=== PATIENT | male | born 1945 | race Caucasian/White ===

== ENCOUNTER 2018-03-23 14:47 | Emergency (ER) | payer OTHER, MEDICARE ==
[~2018-03-23] VITALS: Ht 170.2 cm; Wt 72.6 kg
[~2018-03-23 14:47] MED LIST: KEFLEX500 M1 PO
--- NOTE | 2018-03-23 15:45 | RADIOLOGY REPORT ---
EXAMINATION: XR CHEST CLINICAL INFORMATION: Cough. COMPARISON: None TECHNIQUE: 2 views of the chest were obtained. FINDINGS: No significant abnormality is noted involving the heart, lungs, mediastinum, bony thorax or soft tissues. There are vascular calcifications of aortic arch. There are surgical clips in the upper abdomen. IMPRESSION: No acute abnormality of the chest.
[2018-03-23 16:26] LABS: ABSOLUTE BASOPHIL COUNT 0 /CUMM (0.0-0.2); ABSOLUTE EOSINOPHIL COUNT 0 /CUMM (0.0-0.7); ABSOLUTE GRANULOCYTE CT 4.6 /CUMM (1.4-6.5); ABSOLUTE LYMPH COUNT 0.6 /CUMM (1.2-3.4); ABSOLUTE MONOCYTE COUNT 0.4 /CUMM (0.10-0.60); BASOPHIL % 0.2 % (0.0-2.0); EOSINOPHIL % 0.8 % (0-5); GRANULOCYTE % 81.5 % (42.2-75.2); HEMATOCRIT 38.2 % (42-52); MEAN CORPUSCULAR HGB 31.3 PG (27.0-31.0); MEAN CORPUSCULAR HGB CONC 35.3 G/DL (33.0-37.0); MEAN CORPUSCULAR VOLUME 88.7 FL (80.0-94.0); MEAN PLATELET VOLUME 7.7 FL (7.4-10.4); PLATELET COUNT 195 /CUMM (130-400); RBC DISTRIBUTION WIDTH 13.1 % (11.5-14.5); RED BLOOD CELL CT 4.31 /CUMM (4.70-6.10); WHITE BLOOD CELL COUNT 5.6 /CUMM (4.8-10.8)
--- NOTE | 2018-03-23 17:33 | ED GENERAL ADULT ---
History of Present Illness General Chief Complaint: General Adult Stated Complaint: MULTIPLE COMPLAINTS Source: patient Exam Limitations: no limitations Vital Signs & Intake/Output Vital Signs & Intake/Output Vital Signs Date Time Temp Pulse Resp B/P B/P Pulse O2 O2 Flow FiO2 Mean Ox Delivery Rate 03/23 1745 87 18 165/85 98 Room Air 03/23 1459 98.2 99 20 170/69 96 Room Air Allergies Coded Allergies: NO KNOWN ALLERGIES (03/20/11) Triage Note: PT TO ED C/O URI S/S, COUGH, LETHARGY X A FEW DAYS. C/O PAIN IN RIGHT HIP AND LEFT SHOULDER. PT STATES FEVER AT HOME EARLIER, TOOK MOTRIN AROUND 1430. AROUND 1430. Triage Nurses Notes Reviewed? yes Onset: Gradual Duration: day(s): Timing: recent history Injury Environment: home Severity: moderate HPI: 72-year-old male with history of hypertension, prediabetes presents to emergency department complaining of cough, congestion, fatigue, joint pains 4 days. Patient also reports low-grade fever at home for cheese been taking ibuprofen for. Patient states he has had pain in left shoulder and right hip associated with these symptoms. Pain is described as dull aching. Patient states he has dry cough however feels as though the phlegm will not come out. Patient does not feel short of breath at this time however states that if he exerted himself he might become dyspneic. He denies chest pain, abdominal pain, vomiting, diarrhea, skin rash, tick bite. (Helen CASTANO,Yesi Biswas) Reconcile Medications Amlodipine Besylate 10 MG TABLET 1 TAB PO DAILY BP (Reported) Aspirin (Ecotrin*) 81 MG TABLET.DR 1 TAB PO DAILY HEART/BLOOD (Reported) Atorvastatin Calcium 40 MG TABLET 1 TAB PO DAILY CHOLESTEROL (Reported) Azithromycin (Zithromax) 250 MG TABLET 1 DP PO AD bronchitis 2 the first day followed by 1 for days 2-5 Irbesartan/Hydrochlorothiazide (Irbesartan-Hctz 150-12.5 MG Tb) 150 MG-12.5 MG TABLET 1 TAB PO DAILY BP (Reported) Metformin HCl 500 MG TABLET 1 TAB PO BID DM (Reported) Metoprolol Succinate 50 MG TAB.ER.24H 1 TAB PO DAILY HEART/BP (Reported) Multiple Vitamin (Multivitamins) 1 EACH TABLET 1 TAB PO DAILY SUPPLEMENT ( Reported) Prednisone (Deltasone) 20 MG TABLET 2 TAB PO BID cough (Rickie FULLER,Mohinder) Past History Travel History Traveled to [place] past 21 day No Medical History Any Pertinent Medical History? see below for history Neurological: NONE EENT: NONE Cardiovascular: hyperlipidemia Respiratory: NONE Gastrointestinal: pancreatitis Hepatic: NONE Renal: NONE Musculoskeletal: NONE Psychiatric: NONE Endocrine: diabetes Blood Disorders: NONE Cancer(s): NONE TIP FIXER/Reproductive: NONE History of CDIFF: No Surgical History Surgical History: right leg bone graft Psychosocial History What is your primary language Monegasque Tobacco Use: Quit >30 days ago ETOH Use: denies use Illicit Drug Use: denies illicit drug use Family History Hx Contributory? No (Yesi Arias) Review of Systems Review of Systems Constitutional: Reports: see HPI. EENTM: Reports: no symptoms. Respiratory: Reports: see HPI. Cardiovascular: Reports: no symptoms. GI: Reports: no symptoms. Genitourinary: Reports: no symptoms. Musculoskeletal: Reports: see HPI. Skin: Reports: no symptoms. Neurological/Psychological: Reports: no symptoms. Hematologic/Endocrine: Reports: no symptoms. Immunologic/Allergic: Reports: no symptoms. All Other Systems: Reviewed and Negative (Yesi Arias) Physical Exam Physical Exam General Appearance: well developed/nourished, no apparent distress, alert, awake Head: atraumatic, normal appearance Eyes: Bilateral: normal appearance. Ears, Nose, Throat: hearing grossly normal Neck: normal inspection, supple, full range of motion Respiratory: no respiratory distress, mild bilateral wheezing Cardiovascular: regular rate/rhythm, normal peripheral pulses Peripheral Pulses: 2+ radial (R), 2+ radial (L) Back: normal inspection, normal range of motion Extremities: normal inspection Neurologic/Psych: awake, alert, oriented x 3 Skin: intact, normal color, warm/dry Core Measures ACS in differential dx? No CVA/TIA Diagnosis: No Sepsis Present: No Sepsis Focused Exam Completed? No (Yesi Arias) Progress Differential Diagnoses I considered the following diagnoses in my evaluation of the patient: [Pneumonia , bronchitis, sinusitis, Lyme disease, viral syndrome] Diagnostic Imaging: Viewed by Me: Radiology Read. Discussed w/RAD: Radiology Read. CXR Impression: PATIENT: AMADO LÓPEZ PRESENT AGE: 72 PATIENT ACCOUNT NO: [id number] : 47 LOCATION: [facility] ORDERING PHYSICIAN: Osvaldo CASTANO SERVICE DATE: 03/23/18 EXAM TYPE: RAD - XRY-CHEST XRAY, TWO VIEWS EXAMINATION: XR CHEST CLINICAL INFORMATION: Cough. COMPARISON: None TECHNIQUE: 2 views of the chest were obtained. FINDINGS: No significant abnormality is noted involving the heart, lungs, mediastinum, bony thorax or soft tissues. There are vascular calcifications of aortic arch. There are surgical clips in the upper abdomen. IMPRESSION: No acute abnormality of the chest. DICTATED BY: Mandeep Peralta MD DATE/TIME DICTATED:03/23/181540 [employer] AIDE:KAROL DATE/TIME TRANSCRIBED:03/23/181540 CONFIDENTIAL, DO NOT COPY WITHOUT APPROPRIATE AUTHORIZATION. <Electronically signed in Other Vendor System> SIGNED BY: Mandeep Peralta MD 03/23/181544 Initial ED EKG: sinus rhythm @81bpm, nonspecific ST changes (Helen CASTANO,Yesi Biswas) Plan of Care: Orders Procedure Date/time Status Add-on Test (ER Only) 03/23 1754 Active LYME TITRE 03/23 1617 Active TROPONIN LEVEL 03/23 1501 Complete COMPREHENSIVE METABOLIC PANEL 03/23 1501 Complete CBC WITHOUT DIFFERENTIAL 03/23 1501 Complete EKG 03/23 1501 Active Laboratory Tests 03/23/18 1617: Anion Gap 13, Estimated GFR > 60, BUN/Creatinine Ratio 23.3, Glucose 199 H, Calcium 8.9, Total Bilirubin 0.4, AST 26, ALT 34, Alkaline Phosphatase 90, Troponin I < 0.01, Total Protein 6.4, Albumin 3.8, Globulin 2.6, Albumin/ Globulin Ratio 1.5, CBC w Diff NO MAN DIFF REQ, RBC 4.31 L, MCV 88.7, MCH 31.3 H, MCHC 35.3, RDW 13.1, MPV 7.7, Gran % 81.5 H, Lymphocytes % 10.0 L, Monocytes % 7.5, Eosinophils % 0.8, Basophils % 0.2, Absolute Granulocytes 4.6, Absolute Lymphocytes 0.6 L, Absolute Monocytes 0.4, Absolute Eosinophils 0, Absolute Basophils 0, Lyme Disease Antibody Pending Patient's EKG is stable, sinus rhythm. Labs are nonactionable, troponin enzymes negative. Patient has symptoms related to upper respiratory tract infection including cough, wheezing, mild dyspnea. The symptoms have been present for about 4 days. Will initiate steroid and antibiotic therapy and have patient follow up with primary care doctor. He has not had any chest pain associated with his symptoms, low suspicion for cardiac pathology in this patient. The patient understands and agrees with the plan of care. The patient was seen and evaluated by Dr. Damian who agrees with this plan. (Yesi Arias) (Mohinder Damian DO) Departure Departure Disposition: HOME OR SELF CARE Condition: Stable Clinical Impression Primary Impression: Cough Secondary Impressions: Fever Qualifiers: Fever type: unspecified Qualified Code: R50.9 - Fever, unspecified Referrals: Omar Bojorquez MD (PCP/Family) Additional Instructions: Take steroids and antibiotics as prescribed. Follow-up with your primary care doctor. Return with any worsening symptoms or concerns. Please note that there might be incidental findings in your evaluation that are unrelated to the current emergency department visit. Please notify your primary care doctor about this emergency department visit in order to obtain and review all of the testing performed so that these incidental findings can be monitored as needed. If you had an x-ray performed, please understand that some fractures may not be seen on the initial set of x-rays. If your symptoms persist you might need a repeat set of x-rays to check for such a fracture. If you had a laceration evaluated, please understand that foreign bodies such as glass or wood may not be visible to the naked eye or on plain x-rays. If the wound becomes red, swollen, increasingly more painful or if there is any drainage from the wound, please have it reevaluated by a physician for the possibility of a retained foreign body. If you're unable to follow up as outlined in the discharge instructions please return to the emergency department. Thank you for choosing the [facility] Emergency Department for your care. It was a pleasure to serve you today. Departure Forms: Customer Survey General Discharge Information Prescriptions: Current Visit Scripts Prednisone (Deltasone) 2 TAB PO BID #10 TAB Azithromycin (Zithromax) 1 DP PO AD #6 TAB 2 the first day followed by 1 for days 2-5 (Yesi Arias) PA/TEACHERS ASSISTANT Co-Sign Statement Statement: ED Attending supervision documentation- [x] I saw and evaluated the patient. I have also reviewed all the pertinent lab results and diagnostic results. I agree with the findings and the plan of care as documented in the PA's/TEACHERS ASSISTANT's documentation. [] I have reviewed the ED Record and agree with the PA's/TEACHERS ASSISTANT's documentation. [] Additions or exceptions (if any) to the PAs/TEACHERS ASSISTANT's note and plan are summarized below: [] (Mohinder Damian DO) Critical Care Note Critical Care Note Critical Care Time: non-applicable (Helen CASTANO,Yesi Biswas)
[2018-03-23 17:45] VITALS: BP 165/85
[2018-03-23] MEDS ORDERED: METOPROLOL SUCC50 M2 PO (18:13)
[2018-03-23] MEDS ORDERED: ATORVASTATIN CA40 M1 PO (18:13)
[2018-03-23] MEDS ORDERED: AMLODIPINE BESY10 M1 PO (18:13)
[2018-03-23] MEDS ORDERED: ASPIRIN EC81 M1 PO (18:14)
[2018-03-23] MEDS ORDERED: MULTIVITAMINS1 EAC9 PO (18:14)
[2018-03-23] MEDS ORDERED: IRBESARTAN-HCT1 EACH PO (18:14)
[2018-03-23] MEDS ORDERED: METFORMIN HCL500 M3 PO (18:14)
[2018-03-23] MEDS ORDERED: DELTASONE20 MG PO (18:48)
[2018-03-23] MEDS ORDERED: ZITHROMAX250 M2 PO (18:48)
== END 2018-03-23 18:05 ==
LOC: ERH 14:47
PROVIDERS: Physician Assistant Medical
DX: R05 Cough (principal); R50.9 Fever, unspecified; R53.83 Other fatigue; M25.50 Pain in unspecified joint
CPT/HCPCS: 86618; 71046; 93005; 93010